=== PATIENT | male | born 1940 | race Caucasian/White ===

== ENCOUNTER 2018-09-27 11:44 | Inpatient (IN) | payer MEDICARE ==
[2018-09-27] MEDS ORDERED: IPRATROPIUM-ALBUTEROL 3 ML NEB INHALATION STA (12:08)
[2018-09-27 12:28] LABS: Anisocytosis Slight; Basophils % (A) 1 %; Eosinophils # (A) 0.1 k/uL (0-0.7); Eosinophils % (A) 3 %; HCT 48.3 % (39.0-53.0); HGB 15.4 gm/dL (13.0-17.5); Hypochromasia Slight; Lymphocytes # (A) 0.9 k/uL (1.0-4.8); Lymphocytes % (A) 18 %; MCH 33.3 pg (25.0-35.0); MCHC 31.9 g/dL (31.0-37.0); MCV 104.5 fL (80.0-100.0); Macrocytosis Moderate; Mean Platelet Volume 8.9; Monocytes # (A) 0.4 k/uL (0-1.0); Monocytes % (A) 7 %; Neutrophils # (A) 3.5 k/uL (1.3-7.7); Neutrophils % (A) 69 %; Platelet Count 112 k/uL (150-450); RBC 4.62 m/uL (4.30-5.90); WBC 5.1 k/uL (3.8-10.6)
--- NOTE | 2018-09-27 12:36 | ED ---
SOB HPI - General Chief Complaint: Shortness of Breath Stated Complaint: staci Time Seen by Provider: 09/27/18 11:57 Source: patient, family, RN notes reviewed, old records reviewed Mode of arrival: wheelchair Limitations: no limitations - History of Present Illness Initial Comments: This is a 70-year-old male who presents with complaints of shortness of breath and going on progressively over last he did recently drive from [place] to [place] he does say he's been having worsening shortness of breath some orthopnea and exertional dyspnea. No fevers chills nausea vomiting sweats no overt chest pain. He has a history of heart failure. He does have some peripheral edema which she states is not as bad as it has been in the past. He has a cough some clear phlegm and per his he's been less active for last week or 2 then usual. MD Complaint: shortness of breath - Related Data Home Medications Medication Instructions Recorded Confirmed Allopurinol [Zyloprim] 300 mg PO DAILY 09/27/18 09/27/18 Aspirin [[place] Aspirin EC] 81 mg PO DAILY 09/27/18 09/27/18 Atorvastatin [Lipitor] 40 mg PO DAILY 09/27/18 09/27/18 Bumetanide [BUMEX] 1 mg PO DAILY 09/27/18 09/27/18 Carvedilol [Coreg] 3.125 mg PO BID 09/27/18 09/27/18 Clopidogrel [Plavix] 75 mg PO DAILY 09/27/18 09/27/18 Lisinopril [Zestril] 10 mg PO DAILY 09/27/18 09/27/18 oxyCODONE HCL/ACETAMINOPHEN 1 tab PO Q4HR PRN 09/27/18 09/27/18 [Percocet 5-325 mg] Allergies Allergy/AdvReac Type Severity Reaction Status Date / Time No Known Allergies Allergy Verified 09/27/18 12:07 Review of Systems ROS Statement: Those systems with pertinent positive or pertinent negative responses have been documented in the HPI. ROS Other: All systems not noted in ROS Statement are negative. Past Medical History Past Medical History: Coronary Artery Disease (CAD), Cancer, Vascular Disorder Additional Past Medical History / Comment(s): bladder cancer, carotid stenosis History of Any Multi-Drug Resistant Organisms: None Reported Past Surgical History: Appendectomy, Back Surgery, Coronary Bypass/CABG, Heart Catheterization, Heart Catheterization With Stent, Pacemaker Past Psychological History: No Psychological Hx Reported Smoking Status: Former smoker Past Alcohol Use History: None Reported Past Drug Use History: None Reported General Exam - General Exam Comments Initial Comments: Is a well-developed well-nourished awake alert oriented 3 Limitations: no limitations General appearance: alert, in no apparent distress Head exam: Present: atraumatic, normocephalic, normal inspection Eye exam: Present: normal appearance, PERRL, EOMI. Absent: scleral icterus, conjunctival injection, periorbital swelling ENT exam: Present: normal exam, mucous membranes moist Neck exam: Present: normal inspection, full ROM, other (No stridor JVD or bruits). Absent: tenderness, meningismus, lymphadenopathy Respiratory exam: Present: normal lung sounds bilaterally. Absent: respiratory distress, wheezes, rales, rhonchi, stridor Cardiovascular Exam: Present: regular rate, normal rhythm, normal heart sounds. Absent: systolic murmur, diastolic murmur, rubs, gallop, clicks GI/Abdominal exam: Present: soft, normal bowel sounds. Absent: distended, tenderness, guarding, rebound, rigid Rectal exam: Present: deferred Extremities exam: Present: full ROM, normal capillary refill, pedal edema. Absent: tenderness, joint swelling, calf tenderness Back exam: Present: normal inspection Neurological exam: Present: alert, oriented X3, CN II-XII intact Psychiatric exam: Present: normal affect, normal mood Skin exam: Present: warm, dry, intact, normal color. Absent: rash Course Vital Signs 09/27/18 09/27/18 09/27/18 11:49 12:18 12:28 Temperature 97.7 F Pulse Rate 115 H 114 H 114 H Respiratory 24 Rate Blood Pressure 111/71 O2 Sat by Pulse 100 Oximetry 09/27/18 13:17 Temperature Pulse Rate 114 H Respiratory 18 Rate Blood Pressure 110/83 O2 Sat by Pulse 100 Oximetry - Reevaluation(s) Reevaluation #1: 09/27/18 13:47 Patient did get some relief and is breathing after the nebulizer treatment. Medical Decision Making - Medical Decision Making I did discuss findings with the patient and family member. Patient will be admitted he does demonstrate evidence of dehydration intravascularly though he does also have evidence of congestive heart failure with markedly elevated d- dimer elevated troponin and renal insufficiency and elevated creatinine. Patient will be admitted VQ scan will be ordered. - Lab Data Result diagrams: 09/27/18 12:18 09/27/18 12:18 Lab Results 09/27/18 09/27/18 09/27/18 Range/Units 12:18 12:18 12:18 WBC 5.1 (3.8-10.6) k/uL RBC 4.62 (4.30-5.90) m/uL Hgb 15.4 (13.0-17.5) gm/dL Hct 48.3 (39.0-53.0) % MCV 104.5 H (80.0-100.0) fL MCH 33.3 (25.0-35.0) pg MCHC 31.9 (31.0-37.0) g/dL RDW 18.0 H (11.5-15.5) % Plt Count 112 L (150-450) k/uL Neutrophils % 69 % Lymphocytes % 18 % Monocytes % 7 % Eosinophils % 3 % Basophils % 1 % Neutrophils # 3.5 (1.3-7.7) k/uL Lymphocytes # 0.9 L (1.0-4.8) k/uL Monocytes # 0.4 (0-1.0) k/uL Eosinophils # 0.1 (0-0.7) k/uL Basophils # 0.0 (0-0.2) k/uL Hypochromasia Slight Anisocytosis Slight Macrocytosis Moderate PT 16.6 H (9.0-12.0) sec INR 1.7 H (<1.2) APTT 25.7 (22.0-30.0) sec D-Dimer 4.84 H (<0.60) mg/L FEU Sodium 142 (137-145) mmol/L Potassium 4.0 (3.5-5.1) mmol/L Chloride 103 (98-107) mmol/L Carbon Dioxide 28 (22-30) mmol/L Anion Gap 11 mmol/L BUN 40 H (9-20) mg/dL Creatinine 1.63 H (0.66-1.25) mg/dL Est GFR (CKD-EPI)AfAm 46 (>60 ml/min/1.73 sqM) Est GFR (CKD-EPI)NonAf 40 (>60 ml/min/1.73 sqM) Glucose 96 (74-99) mg/dL Calcium 9.7 (8.4-10.2) mg/dL Magnesium 1.9 (1.6-2.3) mg/dL Total Bilirubin 3.8 H (0.2-1.3) mg/dL AST 60 H (17-59) U/L ALT 61 (21-72) U/L Alkaline Phosphatase 140 H (38-126) U/L Troponin I (0.000-0.034) ng/mL NT-Pro-B Natriuret Pep pg/mL Total Protein 7.2 (6.3-8.2) g/dL Albumin 4.0 (3.5-5.0) g/dL 09/27/18 09/27/18 Range/Units 12:18 12:18 WBC (3.8-10.6) k/uL RBC (4.30-5.90) m/uL Hgb (13.0-17.5) gm/dL Hct (39.0-53.0) % MCV (80.0-100.0) fL MCH (25.0-35.0) pg MCHC (31.0-37.0) g/dL RDW (11.5-15.5) % Plt Count (150-450) k/uL Neutrophils % % Lymphocytes % % Monocytes % % Eosinophils % % Basophils % % Neutrophils # (1.3-7.7) k/uL Lymphocytes # (1.0-4.8) k/uL Monocytes # (0-1.0) k/uL Eosinophils # (0-0.7) k/uL Basophils # (0-0.2) k/uL Hypochromasia Anisocytosis Macrocytosis PT (9.0-12.0) sec INR (<1.2) APTT (22.0-30.0) sec D-Dimer (<0.60) mg/L FEU Sodium (137-145) mmol/L Potassium (3.5-5.1) mmol/L Chloride (98-107) mmol/L Carbon Dioxide (22-30) mmol/L Anion Gap mmol/L BUN (9-20) mg/dL Creatinine (0.66-1.25) mg/dL Est GFR (CKD-EPI)AfAm (>60 ml/min/1.73 sqM) Est GFR (CKD-EPI)NonAf (>60 ml/min/1.73 sqM) Glucose (74-99) mg/dL Calcium (8.4-10.2) mg/dL Magnesium (1.6-2.3) mg/dL Total Bilirubin (0.2-1.3) mg/dL AST (17-59) U/L ALT (21-72) U/L Alkaline Phosphatase (38-126) U/L Troponin I 0.163 H* (0.000-0.034) ng/mL NT-Pro-B Natriuret Pep 3410 pg/mL Total Protein (6.3-8.2) g/dL Albumin (3.5-5.0) g/dL - EKG Data -: EKG Interpreted by Me (Atrial sensed ventricular paced rhythm with PVC rate was 1:151:30 QRS d) - Radiology Data Radiology results: report reviewed (I did review the imaging and report or is some evidence of increased pulmonary markings basically report), image reviewed Critical Care Time Critical Care Time: Yes Critical Care Time: 31 minutes of critical care time which includes initial presentation with history physical labs x-rays multiple reevaluation the patient discussed with patient family regarding findings discussed with Dr. albright regarding the findings admission orders and documentation of the above Disposition Clinical Impression: Systolic congestive heart failure, Acute kidney injury, Elevated d-dimer, Elevated troponin, Acute bronchospasm Disposition: ADMITTED IP TO THIS [facility] Condition: Fair Referrals: Nonstaff,Physician [Primary Care Provider] - 1-2 days
[2018-09-27 12:37] LABS: Calcium 9.7 mg/dL (8.4-10.2); Magnesium 1.9 mg/dL (1.6-2.3); Total Bilirubin 3.8 mg/dL (0.2-1.3); Total Protein 7.2 g/dL (6.3-8.2)
--- NOTE | 2018-09-27 12:43 | XR ---
EXAMINATION TYPE: XR chest 2V DATE OF EXAM: 09/27/2018 COMPARISON: NONE HISTORY: Shortness of breath for 3 weeks TECHNIQUE: Frontal and lateral views of the chest are obtained. FINDINGS: There is a multilead left-sided cardiac device and enlarged cardiac mediastinal silhouette . Post CABG changes are also noted. There is haziness surrounding the right heart border. No signific ant pulmonary vascular congestion. No sizable pleural effusion or pneumothorax. Postsurgical change o f the thoracolumbar spine is seen with mild compression deformity at the level above the postsurgical change and diffuse osseous demineralization as well as moderate degenerative changes of the spine. IMPRESSION: 1. Hazy right middle lobe opacity overlying the right cardiac border could relate to atelectasis or p neumonia in the proper clinical setting. 2. Enlarged cardiomediastinal silhouette is seen with postoperative change. 3. Age indeterminant compression deformity of the thoracic spine a level above the surgical site. Cor relate for point tenderness. No priors for comparison.
[2018-09-27 12:46] LABS: INR 1.7 (<1.2); Partial Thromboplastin Time 25.7 sec (22.0-30.0); Prothrombin Time 16.6 sec (9.0-12.0)
[2018-09-27 13:06] LABS: D-Dimer 4.84 mg/L FEU (<0.60)
[2018-09-27] MEDS ORDERED: HEPARIN SODIUM,PORCINE 10,000 UNIT/ML 1 ML VIAL IV ONE (13:56)
[2018-09-27] MEDS ORDERED: HEPARIN SODIUM,PORCINE 5,000 UNIT/ML 1 ML VIAL IV PRN (13:56)
[2018-09-27] MEDS: SODIUM CHLORIDE 0.9% 1,000 ML IV SCH (14:22)
[2018-09-27] MEDS: HEPARIN SOD,PORK IN 0.45% NACL 25,000 UNIT in 0.45% NACL 1 250ML.BAG IV SCH (14:33)
[2018-09-27] MEDS: FUROSEMIDE 10 MG/ML 4 ML VIAL IV SCH (15:54)
--- NOTE | 2018-09-27 16:09 | NM ---
EXAMINATION TYPE: NM pul vent and perfuse DATE OF EXAM: 09/27/2018 COMPARISON: Chest x-ray same date HISTORY: Shortness of breath, elevated d-dimer TECHNIQUE: Utilizing inhalation of 65.7 mCi Tc 99m DTPA aerosol and intravenous injection of 5.12 mC i of Tc 99m MAA, ventilation and perfusion images are acquired post injection in multiple projections . FINDINGS: There is no evidence of mismatched defects. Central clumping of the radiopharmaceutical o n ventilation imaging compatible with underlying COPD. Overall uptake is better on perfusion imaging than on ventilation imaging. IMPRESSION: Low probability for pulmonary embolism.
[2018-09-27] MEDS: oxyCODONE-APAP 5-325MG 1 EACH TAB PO PRN (18:08)
[2018-09-27] MEDS: ATORVASTATIN 40 MG TAB PO SCH (18:08)
[2018-09-27] MEDS: CARVEDILOL 3.125 MG TAB PO SCH (18:08)
[2018-09-28] MEDS: FUROSEMIDE 10 MG/ML 4 ML VIAL IV SCH (02:17)
[2018-09-28] MEDS: HEPARIN SOD,PORK IN 0.45% NACL 25,000 UNIT in 0.45% NACL 1 250ML.BAG IV SCH (03:27)
[2018-09-28] MEDS: CARVEDILOL 3.125 MG TAB PO SCH ×2 (06:49→17:21)
[2018-09-28 06:59] LABS: Anisocytosis Slight; Basophils # (A) 0.1 k/uL (0-0.2); Basophils % (A) 1 %; Eosinophils # (A) 0.2 k/uL (0-0.7); Eosinophils % (A) 4 %; HCT 44.7 % (39.0-53.0); HGB 14.1 gm/dL (13.0-17.5); Hypochromasia Slight; Lymphocytes % (A) 18 %; MCHC 31.6 g/dL (31.0-37.0); MCV 104.4 fL (80.0-100.0); Macrocytosis Moderate; Mean Platelet Volume 9.1; Monocytes # (A) 0.4 k/uL (0-1.0); Monocytes % (A) 6 %; Neutrophils # (A) 3.9 k/uL (1.3-7.7); Neutrophils % (A) 68 %; Platelet Count 122 k/uL (150-450); RBC 4.28 m/uL (4.30-5.90); RDW 17.8 % (11.5-15.5); WBC 5.7 k/uL (3.8-10.6)
[2018-09-28] MEDS ORDERED: BUMETANIDE 1 MG TAB PO SCH (09:00)
[2018-09-28] MEDS: ALLOPURINOL 300 MG TAB PO SCH (09:08)
[2018-09-28] MEDS: CLOPIDOGREL 75 MG TAB PO SCH (09:08)
[2018-09-28] MEDS: ASPIRIN 81 MG PO SCH (09:08)
[2018-09-28] MEDS: ATORVASTATIN 40 MG TAB PO SCH ×2 (09:08→21:24)
--- NOTE | 2018-09-28 11:17 | P.HPIM ---
History of Present Illness H&P Date: 09/27/18 70-year-old male who presents with complaints of shortness of breath and going on progressively over last he did recently drive from [place] to [place] he does say he's been having worsening shortness of breath some orthopnea and exertional dyspnea. No fevers chills nausea vomiting sweats no overt chest pain. He has a history of heart failure. He does have some peripheral edema which she states is not as bad as it has been in the past. He has a cough some clear phlegm and per his he's been less active for last week or 2 then usual. Workup in ED was significant for mildly elevated troponin and elevated d-dimer; CT chest could not be done because of elevated creatinine; patient underwent VQ scanning which was low probability for PE; patient was started on IV heparin for elevated troponin along with aspirin and beta blockers; cardiology is consulted Review of Systems Constitutional: Denies chills, Denies fever Eyes: denies blurred vision Ears, nose, mouth and throat: Denies epistaxis, Denies hoarseness Cardiovascular: Reports dyspnea on exertion, Reports edema Respiratory: Reports cough with sputum Gastrointestinal: Denies abdominal pain, Denies nausea, Denies vomiting Genitourinary: Denies dysuria, Denies hematuria Integumentary: Denies color changes, Denies rash Neurological: Denies confusion, Denies double vision, Denies gait dysfunction Psychiatric: Denies anxiety, Denies confusion Endocrine: Denies cold intolerance, Denies heat intolerance Hematologic/Lymphatic: Denies easy bruising, Denies lymphadenopathy Allergic/Immunologic: Denies anaphylaxis, Denies seasonal allergies Past Medical History Past Medical History: Coronary Artery Disease (CAD), Cancer, Vascular Disorder Additional Past Medical History / Comment(s): bladder cancer, carotid stenosis History of Any Multi-Drug Resistant Organisms: None Reported Past Surgical History: Appendectomy, Back Surgery, Coronary Bypass/CABG, Heart Catheterization, Heart Catheterization With Stent, Pacemaker Past Psychological History: No Psychological Hx Reported Smoking Status: Former smoker Past Alcohol Use History: None Reported Past Drug Use History: None Reported - Past Family History Father Family Medical History: CVA/TIA Mother Family Medical History: Myocardial Infarction ([place]) Medications and Allergies Home Medications Medication Instructions Recorded Confirmed Type Allopurinol [Zyloprim] 300 mg PO DAILY 09/27/18 09/27/18 History Aspirin [[place] Aspirin EC] 81 mg PO DAILY 09/27/18 09/27/18 History Atorvastatin [Lipitor] 40 mg PO DAILY 09/27/18 09/27/18 History Bumetanide [BUMEX] 1 mg PO DAILY 09/27/18 09/27/18 History Carvedilol [Coreg] 3.125 mg PO BID 09/27/18 09/27/18 History Clopidogrel [Plavix] 75 mg PO DAILY 09/27/18 09/27/18 History Lisinopril [Zestril] 10 mg PO DAILY 09/27/18 09/27/18 History oxyCODONE HCL/ACETAMINOPHEN 1 tab PO Q4HR PRN 09/27/18 09/27/18 History [Percocet 5-325 mg] Allergies Allergy/AdvReac Type Severity Reaction Status Date / Time No Known Allergies Allergy Verified 09/27/18 12:07 Physical Exam Vitals: Vital Signs Temp Pulse Resp BP Pulse Ox 09/27/18 16:57 90/67 09/27/18 16:33 112 H 20 90/66 98 09/27/18 15:43 111 H 20 90/55 92 L 09/27/18 15:32 99 20 103/64 95 09/27/18 14:40 112 H 18 101/68 99 09/27/18 14:14 112 H 18 96/69 100 09/27/18 13:17 114 H 18 110/83 100 09/27/18 12:28 114 H 09/27/18 12:18 114 H 09/27/18 11:49 97.7 F 115 H 24 111/71 100 Intake and Output 09/27/18 09/27/18 09/27/18 06:59 14:59 22:59 Other: Weight 104.326 kg Limitations: no limitations General appearance: alert, in no apparent distress Head exam: Present: atraumatic, normocephalic, normal inspection Eye exam: Present: normal appearance, PERRL, EOMI. Absent: scleral icterus, conjunctival injection, periorbital swelling ENT exam: Present: normal exam, mucous membranes moist Neck exam: Present: normal inspection, full ROM, other (No stridor JVD or bruits). Absent: tenderness, meningismus, lymphadenopathy Respiratory exam: Present: normal lung sounds bilaterally. Absent: respiratory distress, wheezes, rales, rhonchi, stridor Cardiovascular Exam: Present: regular rate, normal rhythm, normal heart sounds. Absent: systolic murmur, diastolic murmur, rubs, gallop, clicks GI/Abdominal exam: Present: soft, normal bowel sounds. Absent: distended, tenderness, guarding, rebound, rigid Rectal exam: Present: deferred Extremities exam: Present: full ROM, normal capillary refill, pedal edema. Absent: tenderness, joint swelling, calf tenderness Back exam: Present: normal inspection Neurological exam: Present: alert, oriented X3, CN II-XII intact Psychiatric exam: Present: normal affect, normal mood Skin exam: Present: warm, dry, intact, normal color. Absent: rash Results CBC & Chem 7: 09/28/18 06:21 09/27/18 12:18 Labs: Abnormal Lab Results - Last 24 Hours (Table) 09/27/18 09/27/18 09/27/18 Range/Units 12:18 12:18 12:18 MCV 104.5 H (80.0-100.0) fL RDW 18.0 H (11.5-15.5) % Plt Count 112 L (150-450) k/uL Lymphocytes # 0.9 L (1.0-4.8) k/uL PT 16.6 H (9.0-12.0) sec INR 1.7 H (<1.2) D-Dimer 4.84 H (<0.60) mg/L FEU BUN 40 H (9-20) mg/dL Creatinine 1.63 H (0.66-1.25) mg/dL Total Bilirubin 3.8 H (0.2-1.3) mg/dL AST 60 H (17-59) U/L Alkaline Phosphatase 140 H (38-126) U/L Troponin I (0.000-0.034) ng/mL 09/27/18 Range/Units 12:18 MCV (80.0-100.0) fL RDW (11.5-15.5) % Plt Count (150-450) k/uL Lymphocytes # (1.0-4.8) k/uL PT (9.0-12.0) sec INR (<1.2) D-Dimer (<0.60) mg/L FEU BUN (9-20) mg/dL Creatinine (0.66-1.25) mg/dL Total Bilirubin (0.2-1.3) mg/dL AST (17-59) U/L Alkaline Phosphatase (38-126) U/L Troponin I 0.163 H* (0.000-0.034) ng/mL Assessment and Plan Assessment: 1. Acute onset dyspnea; right middle lobe pneumonia - We will start patient on IV ceftriaxone along with oral azithromycin - Bronchodilator nebulizer treatments with Proventil/Atrovent - Sputum and blood cultures - Consult pulmonary for further recommendations 2. Elevated d-dimer; rule out PE - CT chest PE protocol could not be done due to elevated creatinine; patient had VQ scan done which was low probability for PE - Pulmonary service consulted for further recommendations 3. Non-ST elevation [place] - Patient started on aspirin, beta blockers and IV heparin per protocol - Consult cardiology for further recommendations; 2-D echo 4. Acute exacerbation CHF - Patient takes Bumex 1 mg by mouth daily at home; we will hold latent start patient on IV Lasix 40 mg every 12 hours - We will monitor strict FRANK's, daily weights, renal function and electrolytes; restricted fluid and sodium diet - Echocardiogram ordered; cardiology is to see for further recommendations 5. Hypertension; patient takes Coreg and lisinopril at home; we will hold off on lisinopril secondary to acute renal injury 6. Hyperlipidemia; atorvastatin 40 mg by mouth daily at bedtime 7. Coronary artery disease/CHF; continue with aspirin, Coreg and Plavix; we'll hold off on Bumex while patient on IV Lasix 8. Acute renal injury; we will hold off on lisinopril; avoid hypotension and nephrotoxins - Monitor strict FRANK's and daily weights along with renal function and electrolyte monitoring - No IV fluids secondary to exacerbation of CHF - We will consult nephrology if renal function continues to deteriorate 9. DVT prophylaxis; systemic anticoagulation with heparin CODE STATUS; DO NOT RESUSCITATE Time with Patient: Greater than 30
--- NOTE | 2018-09-28 12:20 | P.CRDCN ---
History of Present Illness Consult date: 09/28/18 History of present illness: This is a 70-year-old gentleman with history of coronary artery disease with previous bypass surgery, possible cardiomyopathy and congestive heart failure, status post ICD placement with biventricular pacemaker. Apparently the pacemaker was upgraded to by IV. In March 2018. Patient usually comes to [place] on in summer months and spends several weeks. He has been in [place] area for about 5 weeks. Was last 5 weeks. Patient has been coughing and bringing up clear phlegm and has been having shortness of breath. Denied any c hest pain. Doesn't appear patient has any proximal nocturnal dyspnea. Denies any pedal swelling. On admission his d-dimer was elevated and patient had a VQ scan which was low probability for pulmonary emboli. She is being treated with IV Lasix. A chest x-ray shows cardiomegaly but no overt congestive heart failure, but there is suspicion for possible pneumonia in the right middle lobe. Patient is seen by customer experience associate and is planning to continue treated with antibiotics. His creatinine is up to 1.6. His troponins are elevated but the pattern is not consistent with acute myocardial infarction. I'm going to discontinue IV Lasix and start him on by mouth Bumex. I'm going to get an ech ocardiogram done. Further recommendation depending upon the clinical course Review of Systems As per the chart Past Medical History Past Medical History: Coronary Artery Disease (CAD), Cancer, Vascular Disorder Additional Past Medical History / Comment(s): bladder cancer, carotid stenosis History of Any Multi-Drug Resistant Organisms: None Reported Past Surgical History: Appendectomy, Back Surgery, Coronary Bypass/CABG, Heart Catheterization, Heart Catheterization With Stent, Pacemaker Past Anesthesia/Blood Transfusion Reactions: No Reported Reaction Date of Last Stent Placement:: 2015 Type of Cardiac Device: AICD Device Placement Date:: 2015 Past Psychological History: No Psychological Hx Reported Smoking Status: Former smoker Past Alcohol Use History: None Reported Past Drug Use History: None Reported - Past Family History Father Family Medical History: CVA/TIA Mother Family Medical History: Myocardial Infarction ([place]) Medications and Allergies Home Medications Medication Instructions Recorded Confirmed Type Allopurinol [Zyloprim] 300 mg PO DAILY 09/27/18 09/27/18 History Aspirin [[place] Aspirin EC] 81 mg PO DAILY 09/27/18 09/27/18 History Atorvastatin [Lipitor] 40 mg PO DAILY 09/27/18 09/27/18 History Bumetanide [BUMEX] 1 mg PO DAILY 09/27/18 09/27/18 History Carvedilol [Coreg] 3.125 mg PO BID 09/27/18 09/27/18 History Clopidogrel [Plavix] 75 mg PO DAILY 09/27/18 09/27/18 History Lisinopril [Zestril] 10 mg PO DAILY 09/27/18 09/27/18 History oxyCODONE HCL/ACETAMINOPHEN 1 tab PO Q4HR PRN 09/27/18 09/27/18 History [Percocet 5-325 mg] Allergies Allergy/AdvReac Type Severity Reaction Status Date / Time No Known Allergies Allergy Verified 09/27/18 12:07 Physical Exam Vitals: Vital Signs Temp Pulse Pulse Resp BP BP BP 09/28/18 11:34 97.5 F L 109 H 20 09/28/18 10:34 111 H 107/62 09/28/18 08:00 97.3 F L 110 H 16 09/28/18 04:00 97.3 F L 110 H 18 86/62 09/28/18 00:00 97.4 F L 110 H 18 91/56 09/27/18 20:00 97.6 F 112 H 16 89/62 09/27/18 17:26 97.5 F L 78 22 101/71 09/27/18 16:57 90/67 09/27/18 16:33 112 H 20 90/66 09/27/18 15:43 111 H 20 90/55 09/27/18 15:32 99 20 103/64 09/27/18 14:40 112 H 18 101/68 09/27/18 14:14 112 H 18 96/69 09/27/18 13:17 114 H 18 110/83 09/27/18 12:28 114 H 09/27/18 12:18 114 H BP Pulse Ox 09/28/18 11:34 82/58 94 L 09/28/18 10:34 09/28/18 08:00 82/58 94 L 09/28/18 04:00 94 L 09/28/18 00:00 95 09/27/18 20:00 94 L 09/27/18 17:26 09/27/18 16:57 09/27/18 16:33 98 09/27/18 15:43 92 L 09/27/18 15:32 95 09/27/18 14:40 99 09/27/18 14:14 100 09/27/18 13:17 100 09/27/18 12:28 09/27/18 12:18 Intake and Output 09/27/18 09/28/18 09/28/18 22:59 06:59 14:59 Intake Total 246.445 0 420 Output Total 150 125 Balance 96.445 -125 420 Intake: Intake, IV Titration 126.445 0 Amount Heparin Sod,Pork in 0.45% 126.445 0 NaCl 25,000 unit In 0.45 % NaCl 1 250ml.bag @ 18 UNITS/KG/HR 18.779 mls/hr IV .[id number] [facility] Rx#: [id number] Oral 120 420 Output: Urine 150 125 Other: Voiding Method Urinal Urinal Urinal # Voids 1 # Bowel Movements 1 Weight 109.9 kg 109 kg GENERAL EXAM: Patient is alert and oriented and doesn't appear to be in any acute distress, seemed to chronically ill HEENT: Normocephalic. Normal reaction of pupils, equal size, normal range of extraocular motion. No erythema or exudates in the throat. NECK: No masses, no nuchal rigidity. CHEST: No chest wall deformity. LUNGS: Equal air entry with no crackles or wheeze. HEART: S1 and S2 normal with no audible mumurs or gallops. Regular rhythm, femorals equal on both sides.. ABDOMEN: No hepatosplenomegaly, normal bowel sounds, no guarding or rigidity. SKIN: No rashes CENTRAL NERVOUS SYSTEM: No focal deficits. EXTREMITIES: No cyanosis, clubbing or edema. Results 09/28/18 06:21 09/27/18 12:18 Cardiac Enzymes 09/27/18 09/27/18 09/27/18 Range/Units 12:18 12:18 19:52 AST 60 H (17-59) U/L Troponin I 0.163 H* 0.136 H* (0.000-0.034) ng/mL 09/28/18 Range/Units 02:24 AST (17-59) U/L Troponin I 0.136 H* (0.000-0.034) ng/mL Coagulation 09/27/18 09/27/18 09/27/18 Range/Units 12:18 19:52 22:13 PT 16.6 H (9.0-12.0) sec APTT 25.7 >200.0 H* >200.0 H* (22.0-30.0) sec 09/28/18 09/28/18 Range/Units 02:24 06:21 PT (9.0-12.0) sec APTT 57.3 H 67.5 H (22.0-30.0) sec CBC 09/27/18 09/28/18 Range/Units 12:18 06:21 WBC 5.1 5.7 (3.8-10.6) k/uL RBC 4.62 4.28 L (4.30-5.90) m/uL Hgb 15.4 14.1 (13.0-17.5) gm/dL Hct 48.3 44.7 (39.0-53.0) % Plt Count 112 L 122 L (150-450) k/uL Comprehensive Metabolic Panel 09/27/18 Range/Units 12:18 Sodium 142 (137-145) mmol/L Potassium 4.0 (3.5-5.1) mmol/L Chloride 103 (98-107) mmol/L Carbon Dioxide 28 (22-30) mmol/L BUN 40 H (9-20) mg/dL Creatinine 1.63 H (0.66-1.25) mg/dL Glucose 96 (74-99) mg/dL Calcium 9.7 (8.4-10.2) mg/dL AST 60 H (17-59) U/L ALT 61 (21-72) U/L Alkaline Phosphatase 140 H (38-126) U/L Total Protein 7.2 (6.3-8.2) g/dL Albumin 4.0 (3.5-5.0) g/dL Current Medications Generic Name Dose Route Start Last Admin Trade Name Freq PRN Reason Stop Dose Admin Allopurinol 300 mg 09/28/18 09:00 09/28/18 09:08 Zyloprim PO 300 mg DAILY FELIPE Administration Aspirin 81 mg 09/28/18 09:00 09/28/18 09:08 Aspirin PO 81 mg DAILY FELIPE Administration Atorvastatin Calcium 40 mg 09/28/18 21:00 Lipitor PO HS FELIPE Azithromycin 250 mg 09/28/18 11:15 Zithromax PO DAILY FELIPE Bumetanide 1 mg 09/28/18 16:00 Bumex PO BID@0900,1600 FELIPE Carvedilol 3.125 mg 09/27/18 17:30 09/28/18 06:49 Coreg PO 3.125 mg BID-W/MEALS FELIPE Administration Clopidogrel Bisulfate 75 mg 09/28/18 09:00 09/28/18 09:08 Plavix PO 75 mg DAILY FELIPE Administration Sodium Chloride 1,000 mls @ 20 mls/hr 09/27/18 14:00 09/27/18 14:22 Saline 0.9% IV 20 mls/hr .Q24H FELIPE Administration Ceftriaxone Sodium 1 gm/ 50 mls @ 100 mls/hr 09/28/18 12:00 Sodium Chloride IVPB Q24H FELIPE Oxycodone/Acetaminophen 1 each 09/27/18 13:57 09/27/18 18:08 Percocet 5-325 PO 1 each Q4HR PRN Administration Pain Intake and Output 09/27/18 09/28/18 09/28/18 22:59 06:59 14:59 Intake Total 246.445 0 420 Output Total 150 125 Balance 96.445 -125 420 Intake: Intake, IV Titration 126.445 0 Amount Heparin Sod,Pork in 0.45% 126.445 0 NaCl 25,000 unit In 0.45 % NaCl 1 250ml.bag @ 18 UNITS/KG/HR 18.779 mls/hr IV .[id number] [facility] Rx#: [id number] Oral 120 420 Output: Urine 150 125 Other: Voiding Method Urinal Urinal Urinal # Voids 1 # Bowel Movements 1 Weight 109.9 kg 109 kg 09/28/18 06:21 09/27/18 12:18 EKG Interpretations (text) Showed atrial sensed and ventricular paced rhythm. Occasional APCs Assessment and Plan (1) Chronic systolic heart failure Current Visit: Yes Status: Acute Code(s): I50.22 - CHRONIC SYSTOLIC (CONGESTIVE) HEART FAILURE SNOMED Code(s): 013488329 (2) Elevated troponin Current Visit: Yes Status: Acute Code(s): R74.8 - ABNORMAL LEVELS OF OTHER SERUM ENZYMES SNOMED Code(s): 967373580 (3) Pneumonia Current Visit: Yes Status: Acute Code(s): J18.9 - PNEUMONIA, UNSPECIFIED ORGANISM SNOMED Code(s): 242407636 (4) History of coronary artery bypass graft Current Visit: Yes Status: Acute Code(s): Z95.1 - PRESENCE OF AORTOCORONARY BYPASS GRAFT SNOMED Code(s): 688301391 (5) Ischemic cardiomyopathy Current Visit: Yes Status: Acute Code(s): I25.5 - ISCHEMIC CARDIOMYOPATHY SNOMED Code(s): 236187672 (6) Cardiac defibrillator in place Current Visit: Yes Status: Acute Code(s): Z95.810 - PRESENCE OF AUTOMATIC (IMPLANTABLE) CARDIAC DEFIBRILLATOR SNOMED Code(s): 249073122 Plan: We will continue current management with antibiotics. I will discontinue IV Lasix as this doesn't seem to be significant fluid overload. We'll follow his renal functions. We'll repeat the echocardiogram. We'll follow the recommendation customer experience associate. Further recommendations depend upon the clinical course.
--- NOTE | 2018-09-28 13:41 | P.CNPUL ---
History of Present Illness Consult date: 09/28/18 Reason for consult: dyspnea History of present illness: 70-year-old male patient with known history of coronary artery disease, previous bypass surgery, possible cardiomyopathy as the patient has a AICD with biventricular pacer and all of this work has been done in [place]. The patient also has history of bladder cancer receiving intravesicular chemotherapy locally. No history of any chronic lung disease or disorder. The patient arrived to [place] approximately 5 weeks ago. This is his summer vacation. During the study was having increased cough and congestion and some increased shortness of breath. The patient came into the hospital. He was found to be in acute kidney injury with a creatinine of 1.6. His troponins were minimally elevated and there was evidence of troponin leak consistent with an acute non- STEMI. The patient is a chest x-ray that showed some limited right middle lobe pulmonary infiltrates. The pulmonary consultation was requested. The patient is also is being seen by cardiology. He is on room air for now. No nausea. No vomiting. No aspiration. He does not utilize any form of oxygen or pulmonary medication on outpatient basis. Baseline creatinine is not known. Otherwise no other records available. He is known to have peripheral vascular disease with previous intervention to his lower extremities. He is also has undergone coronary stenting and previous bypass surgery. Review of Systems Constitutional: Denies chills, Denies fever Eyes: denies blurred vision Ears, nose, mouth and throat: Denies epistaxis, Denies hoarseness Cardiovascular: Reports dyspnea on exertion, Reports edema Respiratory: Reports cough with sputum Gastrointestinal: Denies abdominal pain, Denies nausea, Denies vomiting Genitourinary: Denies dysuria, Denies hematuria Integumentary: Denies color changes, Denies rash Neurological: Denies confusion, Denies double vision, Denies gait dysfunction Psychiatric: Denies anxiety, Denies confusion Endocrine: Denies cold intolerance, Denies heat intolerance Hematologic/Lymphatic: Denies easy bruising, Denies lymphadenopathy Allergic/Immunologic: Denies anaphylaxis, Denies seasonal allergies Past Medical History Past Medical History: Coronary Artery Disease (CAD), Cancer, Vascular Disorder Additional Past Medical History / Comment(s): bladder cancer treated with intravesicular chemotherapy, peripheral vascular disease, carotid artery stenosis, coronary artery disease with previous bypass surgery, hyperuricemia, hyperlipidemia, previous history of acid the/ventricular pacer insertion, suspected cardiomyopathy. History of Any Multi-Drug Resistant Organisms: None Reported Past Surgical History: Appendectomy, Back Surgery, Coronary Bypass/CABG, Heart Catheterization, Heart Catheterization With Stent, Pacemaker Past Anesthesia/Blood Transfusion Reactions: No Reported Reaction Date of Last Stent Placement:: 2015 Type of Cardiac Device: AICD Device Placement Date:: 2015 Past Psychological History: No Psychological Hx Reported Smoking Status: Former smoker Past Alcohol Use History: None Reported Past Drug Use History: None Reported - Past Family History Father Family Medical History: CVA/TIA Mother Family Medical History: Myocardial Infarction ([place]) Medications and Allergies Home Medications Medication Instructions Recorded Confirmed Type Allopurinol [Zyloprim] 300 mg PO DAILY 09/27/18 09/27/18 History Aspirin [[place] Aspirin EC] 81 mg PO DAILY 09/27/18 09/27/18 History Atorvastatin [Lipitor] 40 mg PO DAILY 09/27/18 09/27/18 History Bumetanide [BUMEX] 1 mg PO DAILY 09/27/18 09/27/18 History Carvedilol [Coreg] 3.125 mg PO BID 09/27/18 09/27/18 History Clopidogrel [Plavix] 75 mg PO DAILY 09/27/18 09/27/18 History Lisinopril [Zestril] 10 mg PO DAILY 09/27/18 09/27/18 History oxyCODONE HCL/ACETAMINOPHEN 1 tab PO Q4HR PRN 09/27/18 09/27/18 History [Percocet 5-325 mg] Allergies Allergy/AdvReac Type Severity Reaction Status Date / Time No Known Allergies Allergy Verified 09/27/18 12:07 Physical Exam Vitals: Vital Signs Temp Pulse Pulse Resp BP BP BP 09/28/18 11:34 97.5 F L 109 H 20 09/28/18 10:34 111 H 107/62 09/28/18 08:00 97.3 F L 110 H 16 09/28/18 04:00 97.3 F L 110 H 18 86/62 09/28/18 00:00 97.4 F L 110 H 18 91/56 09/27/18 20:00 97.6 F 112 H 16 89/62 09/27/18 17:26 97.5 F L 78 22 101/71 09/27/18 16:57 90/67 09/27/18 16:33 112 H 20 90/66 09/27/18 15:43 111 H 20 90/55 09/27/18 15:32 99 20 103/64 09/27/18 14:40 112 H 18 101/68 09/27/18 14:14 112 H 18 96/69 BP Pulse Ox 09/28/18 11:34 82/58 94 L 09/28/18 10:34 09/28/18 08:00 82/58 94 L 09/28/18 04:00 94 L 09/28/18 00:00 95 09/27/18 20:00 94 L 09/27/18 17:26 09/27/18 16:57 09/27/18 16:33 98 09/27/18 15:43 92 L 09/27/18 15:32 95 09/27/18 14:40 99 09/27/18 14:14 100 Intake and Output 09/27/18 09/28/18 09/28/18 22:59 06:59 14:59 Intake Total 246.445 0 420 Output Total 150 125 Balance 96.445 -125 420 Intake: Intake, IV Titration 126.445 0 Amount Heparin Sod,Pork in 0.45% 126.445 0 NaCl 25,000 unit In 0.45 % NaCl 1 250ml.bag @ 18 UNITS/KG/HR 18.779 mls/hr IV .[id number] [facility] Rx#: [id number] Oral 120 420 Output: Urine 150 125 Other: Voiding Method Urinal Urinal Urinal # Voids 1 # Bowel Movements 1 Weight 109.9 kg 109 kg Results Gen. appearance, comfortable likely distress Head exam was generally normal. There was no scleral icterus or corneal arcus. Mucous membranes were moist. Neck was supple and without jugular venous distension, thyromegaly, or carotid bruits. Carotids were easily palpable bilaterally. There was no adenopathy. Lungs sounds are clear diminished in lung bases otherwise there is no crackles or rhonchi or wheezes. Cardiac exam revealed the PMI to be normally situated and sized. The rhythm was regular and no extrasystoles were noted during several minutes of auscultation. The first and second heart sounds were normal and physiologic splitting of the s econd heart sound was noted. There were no murmurs, rubs, clicks, or gallops. The patient is a pacemaker pocket in the left anterior chest area in addition to sternotomy scar which is dry clean and intact. Abdominal exam revealed normal bowel sounds. The abdomen was soft, non-tender, and without masses, organomegaly, or appreciable enlargement of the abdominal aorta. Examination of the extremities revealed easily palpable yet diminished radial, femoral and pedal pulses. There was no cyanosis, clubbing or edema. Examination of the skin revealed no evidence of significant rashes, suspicious appearing nevi or other concerning lesions. - Laboratory Findings CBC and BMP: 09/28/18 06:21 09/27/18 12:18 PT/INR, D-dimer PT 16.6 sec (9.0-12.0) H 09/27/18 12:18 INR 1.7 (<1.2) H 09/27/18 12:18 D-Dimer 4.84 mg/L FEU (<0.60) H 09/27/18 12:18 Abnormal lab findings: Abnormal Labs 09/27/18 09/27/18 09/27/18 12:18 12:18 12:18 RBC MCV 104.5 H RDW 18.0 H Plt Count 112 L Lymphocytes # 0.9 L PT 16.6 H INR 1.7 H APTT D-Dimer 4.84 H BUN 40 H Creatinine 1.63 H Total Bilirubin 3.8 H AST 60 H Alkaline Phosphatase 140 H Troponin I 09/27/18 09/27/18 09/27/18 12:18 19:52 19:52 RBC MCV RDW Plt Count Lymphocytes # PT INR APTT >200.0 H* D-Dimer BUN Creatinine Total Bilirubin AST Alkaline Phosphatase Troponin I 0.163 H* 0.136 H* 09/27/18 09/28/18 09/28/18 22:13 02:24 02:24 RBC MCV RDW Plt Count Lymphocytes # PT INR APTT >200.0 H* 57.3 H D-Dimer BUN Creatinine Total Bilirubin AST Alkaline Phosphatase Troponin I 0.136 H* 09/28/18 09/28/18 06:21 06:21 RBC 4.28 L MCV 104.4 H RDW 17.8 H Plt Count 122 L Lymphocytes # PT INR APTT 67.5 H D-Dimer BUN Creatinine Total Bilirubin AST Alkaline Phosphatase Troponin I Assessment and Plan Plan: 1 shortness of breath, subacute, suspecting a right middle lobe pneumonia 2 coronary artery disease with a previous coronary artery bypass surgery. Suspect a possible STEMI as the patient had elevation in troponins 3 CHF, suspected 4 kidney injury, likely acute 5 elevated d-dimer with a low probability VQ scan, unlikely to be related to pulmonary embolism 6 hypertension 7 hyperlipidemia 8 peripheral vascular disease 9 history of AICD/pacer insertion Plan Agree on Rocephin and Zithromax. Monitor pulmonary status. The patient is currently on room air oxygen. No signs of any respiratory distress. Monitor renal function. Echocardiogram. We'll follow.
[2018-09-28] MEDS: AZITHROMYCIN 250 MG TAB PO SCH (13:58)
[2018-09-28] MEDS: SODIUM CHLORIDE 0.9% 1,000 ML IV SCH (13:58)
[2018-09-28 14:51] VITALS: BMI 34.4
--- NOTE | 2018-09-28 16:45 | P.PN ---
Subjective Progress Note Date: 09/28/18 Principal diagnosis: right middle lobe pneumonia Non-ST elevation AL Acute exacerbation CHF 70-year-old male patient with known history of coronary artery disease, previous bypass surgery, possible cardiomyopathy as the patient has a AICD with biventricular pacer and all of this work has been done in [place]. The patient also has history of bladder cancer receiving intravesicular chemotherapy locally. No history of any chronic lung disease or disorder. The patient arrived to [place] approximately 5 weeks ago. This is his summer vacation. During the study was having increased cough and congestion and some increased shortness of breath. The patient came into the hospital. He was found to be in acute kidney injury with a creatinine of 1.6. His troponins were minimally elevated and there was evidence of troponin leak consistent with an acute non- STEMI. The patient is a chest x-ray that showed some limited right middle lobe pulmonary infiltrates. 09/28/2018 Patient is seen and evaluated in room at bedside; remains somewhat lethargic but does report respond to verbal stimulation vital signs show temperature of 97.6, pulse 114, respiration 20 and blood pressure of 84/64; SpO2 of 96% on room air Lab review shows a normal white blood count; troponin I was 0.136 Patient is started on IV ceftriaxone and azithromycin; pulmonary service agrees with above Cardiology is following and recommending to continue with. IV antibiotics since pneumonia seems to be etiology of shortness of breath; IV Lasix has been discontinued; echocardiogram is ordered and cardiology will make further recommendations after echo is reported Objective - Vital Signs Vital signs: Vital Signs Temp 97.3 F L 09/28/18 08:00 Pulse 111 H 09/28/18 10:34 Resp 16 09/28/18 08:00 BP 107/62 09/28/18 10:34 Pulse Ox 94 L 09/28/18 08:00 Intake & Output 09/27/18 09/28/18 09/28/18 18:59 06:59 18:59 Intake Total 120 126.445 420 Output Total 275 Balance 120 -148.555 420 Weight 109.9 kg 109 kg Intake: Intake, IV Titration 126.445 Amount Heparin Sod,Pork in 0.45% 126.445 NaCl 25,000 unit In 0.45 % NaCl 1 250ml.bag @ 18 UNITS/KG/HR 18.779 mls/hr IV .[id number] [facility] Rx#: [id number] Oral 120 420 Output: Urine 275 Other: Voiding Method Toilet Urinal Urinal # Voids 1 # Bowel Movements 1 - Exam - Constitutional General appearance: Present: average body habitus, cooperative, no acute distress - EENT Eyes: Present: anicteric sclerae, EOMI, PERRLA, normal appearance ENT: Present: hearing grossly normal, normal oropharynx Ears: bilateral: normal - Neck Neck: Present: normal ROM. Absent: lymphadenopathy, rigidity, thyromegaly Carotids: negative: bruit present Thyroid: bilateral: normal size, negative: enlarged, nodule - Respiratory Respiratory: bilateral: CTA, negative: rales, rhonchi, wheezing - Cardiovascular Rhythm: regular Heart sounds: normal: S1, S2 Abnormal Heart Sounds: Absent: systolic murmur, diastolic murmur - Gastrointestinal General gastrointestinal: Present: normal bowel sounds, soft. Absent: distended, organomegaly, tenderness - Genitourinary Genitourinary Comment(s): deferred - Integumentary Integumentary: Present: normal turgor. Absent: jaundiced, rash, ulcer - Neurologic Neurologic: Present: CNII-XII intact. Absent: focal deficits - Musculoskeletal Musculoskeletal: Present: gait normal, strength equal bilaterally - Psychiatric Psychiatric: Present: A&O x's 3, appropriate affect, intact judgment & insight - Labs CBC & Chem 7: 09/28/18 06:21 09/27/18 12:18 Labs: Abnormal Lab Results - Last 24 Hours (Table) 09/27/18 09/27/18 09/27/18 Range/Units 12:18 12:18 12:18 RBC (4.30-5.90) m/uL MCV 104.5 H (80.0-100.0) fL RDW 18.0 H (11.5-15.5) % Plt Count 112 L (150-450) k/uL Lymphocytes # 0.9 L (1.0-4.8) k/uL PT 16.6 H (9.0-12.0) sec INR 1.7 H (<1.2) APTT (22.0-30.0) sec D-Dimer 4.84 H (<0.60) mg/L FEU BUN 40 H (9-20) mg/dL Creatinine 1.63 H (0.66-1.25) mg/dL Total Bilirubin 3.8 H (0.2-1.3) mg/dL AST 60 H (17-59) U/L Alkaline Phosphatase 140 H (38-126) U/L Troponin I (0.000-0.034) ng/mL 09/27/18 09/27/18 09/27/18 Range/Units 12:18 19:52 19:52 RBC (4.30-5.90) m/uL MCV (80.0-100.0) fL RDW (11.5-15.5) % Plt Count (150-450) k/uL Lymphocytes # (1.0-4.8) k/uL PT (9.0-12.0) sec INR (<1.2) APTT >200.0 H* (22.0-30.0) sec D-Dimer (<0.60) mg/L FEU BUN (9-20) mg/dL Creatinine (0.66-1.25) mg/dL Total Bilirubin (0.2-1.3) mg/dL AST (17-59) U/L Alkaline Phosphatase (38-126) U/L Troponin I 0.163 H* 0.136 H* (0.000-0.034) ng/mL 09/27/18 09/28/18 09/28/18 Range/Units 22:13 02:24 02:24 RBC (4.30-5.90) m/uL MCV (80.0-100.0) fL RDW (11.5-15.5) % Plt Count (150-450) k/uL Lymphocytes # (1.0-4.8) k/uL PT (9.0-12.0) sec INR (<1.2) APTT >200.0 H* 57.3 H (22.0-30.0) sec D-Dimer (<0.60) mg/L FEU BUN (9-20) mg/dL Creatinine (0.66-1.25) mg/dL Total Bilirubin (0.2-1.3) mg/dL AST (17-59) U/L Alkaline Phosphatase (38-126) U/L Troponin I 0.136 H* (0.000-0.034) ng/mL 09/28/18 09/28/18 Range/Units 06:21 06:21 RBC 4.28 L (4.30-5.90) m/uL MCV 104.4 H (80.0-100.0) fL RDW 17.8 H (11.5-15.5) % Plt Count 122 L (150-450) k/uL Lymphocytes # (1.0-4.8) k/uL PT (9.0-12.0) sec INR (<1.2) APTT 67.5 H (22.0-30.0) sec D-Dimer (<0.60) mg/L FEU BUN (9-20) mg/dL Creatinine (0.66-1.25) mg/dL Total Bilirubin (0.2-1.3) mg/dL AST (17-59) U/L Alkaline Phosphatase (38-126) U/L Troponin I (0.000-0.034) ng/mL Assessment and Plan Assessment: 1. Acute onset dyspnea; right middle lobe pneumonia - We will start patient on IV ceftriaxone along with oral azithromycin - Bronchodilator nebulizer treatments with Proventil/Atrovent - Sputum and blood cultures - Consult pulmonary for further recommendations 2. Elevated d-dimer; rule out PE - CT chest PE protocol could not be done due to elevated creatinine; patient had VQ scan done which was low probability for PE - Pulmonary service consulted for further recommendations 3. Non-ST elevation AL - Patient started on aspirin, beta blockers and IV heparin per protocol - Consult cardiology for further recommendations; 2-D echo 4. Acute exacerbation CHF - Patient takes Bumex 1 mg by mouth daily at home; we will hold latent start patient on IV Lasix 40 mg every 12 hours - We will monitor strict FRANK's, daily weights, renal function and electrolytes; restricted fluid and sodium diet - Echocardiogram ordered; cardiology is to see for further recommendations 5. Hypertension; patient takes Coreg and lisinopril at home; we will hold off on lisinopril secondary to acute renal injury 6. Hyperlipidemia; atorvastatin 40 mg by mouth daily at bedtime 7. Coronary artery disease/CHF; continue with aspirin, Coreg and Plavix; we'll hold off on Bumex while patient on IV Lasix 8. Acute renal injury; we will hold off on lisinopril; avoid hypotension and nephrotoxins - Monitor strict FRANK's and daily weights along with renal function and electrolyte monitoring - No IV fluids secondary to exacerbation of CHF - We will consult nephrology if renal function continues to deteriorate 9. DVT prophylaxis; systemic anticoagulation with heparin CODE STATUS; DO NOT RESUSCITATE Time with Patient: Greater than 30
[2018-09-28] MEDS: BUMETANIDE 1 MG TAB PO SCH ×2 (16:53→18:41)
[2018-09-29] MEDS: CARVEDILOL 3.125 MG TAB PO SCH ×2 (06:23→17:10)
[2018-09-29 07:05] LABS: Basophils % (A) 1 %; Eosinophils # (A) 0.2 k/uL (0-0.7); Eosinophils % (A) 4 %; HCT 45.3 % (39.0-53.0); HGB 14.1 gm/dL (13.0-17.5); Hypochromasia Slight; Lymphocytes % (A) 19 %; MCH 32.7 pg (25.0-35.0); MCHC 31.2 g/dL (31.0-37.0); MCV 104.9 fL (80.0-100.0); Macrocytosis Moderate; Mean Platelet Volume 8.3; Monocytes # (A) 0.5 k/uL (0-1.0); Monocytes % (A) 8 %; Neutrophils # (A) 3.6 k/uL (1.3-7.7); Neutrophils % (A) 65 %; Platelet Count 107 k/uL (150-450); RBC 4.32 m/uL (4.30-5.90); WBC 5.6 k/uL (3.8-10.6)
[2018-09-29] MEDS: ALLOPURINOL 300 MG TAB PO SCH (09:00)
[2018-09-29] MEDS: CLOPIDOGREL 75 MG TAB PO SCH (09:00)
[2018-09-29] MEDS: ASPIRIN 81 MG PO SCH (09:00)
[2018-09-29] MEDS: BUMETANIDE 1 MG TAB PO SCH ×2 (09:00→15:55)
[2018-09-29] MEDS: AZITHROMYCIN 250 MG TAB PO SCH (09:02)
--- NOTE | 2018-09-29 10:43 | P.PN ---
Subjective Progress Note Date: 09/29/18 This is a 70-year-old gentleman with history of coronary artery disease with previous bypass surgery, possible cardiomyopathy and congestive heart failure, status post ICD placement with biventricular pacemaker. Apparently the pacemaker was upgraded to by IV. In March 2018. Patient usually comes to [place] on in summer months and spends several weeks. He has been in [place] area for about 5 weeks. Was last 5 weeks. Patient has been coughing and bringing up clear phlegm and has been having shortness of breath. Denied any chest pain. Doesn't appear patient has any proximal nocturnal dyspnea. Denies any pedal swelling. On admission his d-dimer was elevated and patient had a VQ scan which was low probability for pulmonary emboli. She is being treated with IV Lasix. A chest x-ray shows cardiomegaly but no overt congestive heart failure, but there is suspicion for possible pneumonia in the right middle lobe. Patient is seen by ticket speculator and is planning to continue treated with antibiotics. His creatinine is up to 1.6. His troponins are elevated but the pattern is not consistent with acute myocardial infarction. I'm going to discontinue IV Lasix and start him on by mouth Bumex. I'm going to get an echocardiogram done. Further recommendation depending upon the clinical course 09/29: Patient states he has had some improvement of his shortness of breath. Today is his first time getting out of bed to a chair. Echocardiogram is pending. Patient has been seen by Dr. Manley for pneumonia and continued on antibiotics. Patient is off heparin drip. Continue Bumex oral for now. He has been afebrile, heart rate 110, blood pressure 105/68, pulse ox 96% on room air. Objective - Vital Signs Vital signs: Vital Signs Temp 97.5 F L 09/29/18 08:00 Pulse 110 H 09/29/18 08:00 Resp 24 09/29/18 08:00 BP 105/68 09/29/18 08:00 Pulse Ox 96 09/29/18 08:00 Intake & Output 09/28/18 09/29/18 09/29/18 18:59 06:59 18:59 Intake Total 700 150 400 Output Total 1250 700 150 Balance -550 -550 250 Weight 109 kg 109.8 kg Intake: IV 50 cefTRIAXone 1 gm In 50 Sodium Chloride 0.9% 50 ml @ 100 mls/hr IVPB Q24H [facility] Rx#:[id number] Intake, IV Titration 160 Amount Sodium Chloride 0.9% 1, 160 000 ml @ 20 mls/hr IV . Q24H [facility] Rx#:[id number] Oral 650 150 240 Output: Urine 1250 700 150 Other: Voiding Method Urinal Urinal Urinal # Voids 1 1 # Bowel Movements 1 - Exam GENERAL EXAM: Patient is alert and oriented and doesn't appear to be in any acute distress, seemed to chronically ill HEENT: Normocephalic. Normal reaction of pupils, equal size, normal range of extraocular motion. No erythema or exudates in the throat. NECK: No masses, no nuchal rigidity. CHEST: No chest wall deformity. LUNGS: Equal air entry with no crackles or wheeze. HEART: S1 and S2 normal with no audible mumurs or gallops. Regular rhythm, femorals equal on both sides.. ABDOMEN: No hepatosplenomegaly, normal bowel sounds, no guarding or rigidity. SKIN: No rashes CENTRAL NERVOUS SYSTEM: No focal deficits. EXTREMITIES: No cyanosis, clubbing or edema. - Labs CBC & Chem 7: 09/29/18 05:57 09/27/18 12:18 Labs: Abnormal Lab Results - Last 24 Hours (Table) 09/28/18 09/29/18 Range/Units 12:58 05:57 MCV 104.9 H (80.0-100.0) fL RDW 16.0 H (11.5-15.5) % Plt Count 107 L (150-450) k/uL APTT 99.7 H (22.0-30.0) sec Assessment and Plan Plan: (1) Chronic systolic heart failure Current Visit: Yes Status: Acute Code(s): I50.22 - CHRONIC SYSTOLIC (CONGESTIVE) HEART FAILURE SNOMED Code(s): 171866435 (2) Elevated troponin acute coronary syndrome ruled out Current Visit: Yes Status: Acute Code(s): R74.8 - ABNORMAL LEVELS OF OTHER SERUM ENZYMES SNOMED Code(s): 679161585 (3) Pneumonia Current Visit: Yes Status: Acute Code(s): J18.9 - PNEUMONIA, UNSPECIFIED ORGANISM SNOMED Code(s): 268127376 (4) History of coronary artery bypass graft Current Visit: Yes Status: Acute Code(s): Z95.1 - PRESENCE OF AORTOCORONARY BYPASS GRAFT SNOMED Code(s): 289338344 (5) Ischemic cardiomyopathy Current Visit: Yes Status: Acute Code(s): I25.5 - ISCHEMIC CARDIOMYOPATHY SNOMED Code(s): 756945865 (6) Cardiac defibrillator in place Current Visit: Yes Status: Acute Code(s): Z95.810 - PRESENCE OF AUTOMATIC (IMPLANTABLE) CARDIAC DEFIBRILLATOR SNOMED Code(s): 701368494 Plan: We will continue current management with antibiotics. Continue Bumex 1 mg twice daily but patient does not seem to be in significant fluid overload. Monitor renal functions. Obtain 2-D echocardiogram and Doppler study to assess cardiac structure and function. Further recommendations depend upon the clinical course. Nurse practitioner note has been reviewed, I agree with document findings and plan of care. Vision was seen and examined.
--- NOTE | 2018-09-29 11:15 | P.PN ---
Subjective Progress Note Date: 09/29/18 Principal diagnosis: Dyspnea, suspecting a right middle lobe pneumonia. 70-year-old male patient with known history of coronary artery disease, previous bypass surgery, possible cardiomyopathy as the patient has a AICD with biventricular pacer and all of this work has been done in [place]. The patient also has history of bladder cancer receiving intravesicular chemotherapy lo joe. No history of any chronic lung disease or disorder. The patient arrived to [place] approximately 5 weeks ago. This is his summer vacation. During the study was having increased cough and congestion and some increased shortness of breath. The patient came into the hospital. He was found to be in acute kidney injury with a creatinine of 1.6. His troponins were minimally elevated and t here was evidence of troponin leak consistent with an acute non-STEMI. The patient is a chest x-ray that showed some limited right middle lobe pulmonary infiltrates. The pulmonary consultation was requested. The patient is also is being seen by cardiology. He is on room air for now. No nausea. No vomiting. No aspiration. He does not utilize any form of oxygen or pulmonary medication on outpatient basis. Baseline creatinine is not known. Otherwise no other records available. He is known to have peripheral vascular disease with previous intervention to his lower extremities. He is also has undergone coronary stenting and previous bypass surgery. The patient is seen today 09/29/2018 in follow-up on the selective care unit. He is currently resting comfortably in bed. Awake and alert in no acute distress. Breathing easier today as compared to yesterday. Loose nonproductive cough. Maintaining good O2 saturations in the 90s on room air. She's afebrile. Slightly tachycardic. White count 5.6. Hemoglobin 14.1. Continued on ceftriaxone and azithromycin. Objective - Vital Signs Vital signs: Vital Signs Temp 97.5 F L 09/29/18 08:00 Pulse 110 H 09/29/18 08:00 Resp 24 09/29/18 08:00 BP 105/68 09/29/18 08:00 Pulse Ox 96 09/29/18 08:00 Intake & Output 09/28/18 09/29/18 09/29/18 18:59 06:59 18:59 Intake Total 700 150 400 Output Total 1250 700 150 Balance -550 -550 250 Weight 109 kg 109.8 kg Intake: IV 50 cefTRIAXone 1 gm In 50 Sodium Chloride 0.9% 50 ml @ 100 mls/hr IVPB Q24H [facility] Rx#:[id number] Intake, IV Titration 160 Amount Sodium Chloride 0.9% 1, 160 000 ml @ 20 mls/hr IV . Q24H [facility] Rx#:[id number] Oral 650 150 240 Output: Urine 1250 700 150 Other: Voiding Method Urinal Urinal Urinal # Voids 1 1 # Bowel Movements 1 1 - Exam Gen. appearance, resting comfortably in bed, on room air, no acute distress Head exam was generally normal. There was no scleral icterus or corneal arcus. Mucous membranes were moist. Neck was supple and without jugular venous distension, thyromegaly, or carotid bruits. Carotids were easily palpable bilaterally. There was no adenopathy. Lungs sounds are clear diminished in lung bases, few scattered rhonchi Cardiac exam revealed the PMI to be normally situated and sized. The rhythm was regular and no extrasystoles were noted during several minutes of auscultation. The first and second heart sounds were normal and physiologic splitting of the second heart sound was noted. There were no murmurs, rubs, clicks, or gallops. The patient is a pacemaker pocket in the left anterior chest area in addition to sternotomy scar which is dry clean and intact. Abdominal exam revealed normal bowel sounds. The abdomen was soft, non-tender, and without masses, organomegaly, or appreciable enlargement of the abdominal aorta. Examination of the extremities revealed easily palpable yet diminished radial, femoral and pedal pulses. There was no cyanosis, clubbing or edema. Examination of the skin revealed no evidence of significant rashes, suspicious appearing nevi or other concerning lesions. - Labs CBC & Chem 7: 09/29/18 05:57 09/27/18 12:18 Labs: Abnormal Lab Results - Last 24 Hours (Table) 09/28/18 09/29/18 Range/Units 12:58 05:57 MCV 104.9 H (80.0-100.0) fL RDW 16.0 H (11.5-15.5) % Plt Count 107 L (150-450) k/uL APTT 99.7 H (22.0-30.0) sec Assessment and Plan Assessment: Impression: 1 shortness of breath, subacute, suspecting a right middle lobe pneumonia 2 coronary artery disease with a previous coronary artery bypass surgery. Suspect a possible STEMI as the patient had elevation in troponins 3 CHF, suspected 4 kidney injury, likely acute 5 elevated d-dimer with a low probability VQ scan, unlikely to be related to pulmonary embolism 6 hypertension 7 hyperlipidemia 8 peripheral vascular disease 9 history of AICD/pacer insertion Plan: The patient was seen and evaluated by Dr. Manley. He is improved today as c ompared to yesterday. Continue current treatment plan. Follow-up chest x-ray in the a.m. Probable discharge in the a.m. We'll continue to follow. I, the cosigning physician, performed a history & physical examination of the patient. Lungs sounds with few scattered rhonchi. Maintaining good O2 saturations in the 90s on room air. I discussed the assessment and plan of care with my nurse practitioner, Jami Sagastume. I attest to the above note as dictated by her.
[2018-09-29] MEDS: oxyCODONE-APAP 5-325MG 1 EACH TAB PO PRN (13:10)
--- NOTE | 2018-09-29 14:42 | P.PN ---
Subjective Progress Note Date: 09/29/18 Principal diagnosis: right middle lobe pneumonia Non-ST elevation ND Acute exacerbation CHF 70-year-old male patient with known history of coronary artery disease, previous bypass surgery, possible cardiomyopathy as the patient has a AICD with biventricular pacer and all of this work has been done in [place]. The patient also has history of bladder cancer receiving intravesicular chemotherapy locally. No history of any chronic lung disease or disorder. The patient arrived to [place] approximately 5 weeks ago. This is his summer vacation. During the study was having increased cough and congestion and some increased shortness of breath. The patient came into the hospital. He was found to be in acute kidney injury with a creatinine of 1.6. His troponins were minimally elevated and there was evidence of troponin leak consistent with an acute non- STEMI. The patient is a chest x-ray that showed some limited right middle lobe pulmonary infiltrates. 09/28/2018 Patient is seen and evaluated in room at bedside; remains somewhat lethargic but does report respond to verbal stimulation vital signs show temperature of 97.6, pulse 114, respiration 20 and blood pressure of 84/64; SpO2 of 96% on room air Lab review shows a normal white blood count; troponin I was 0.136 Patient is started on IV ceftriaxone and azithromycin; pulmonary service agrees with above Cardiology is following and recommending to continue with. IV antibiotics since pneumonia seems to be etiology of shortness of breath; IV Lasix has been discontinued; echocardiogram is ordered and cardiology will make further recommendations after echo is reported 09/29/2018 Patient is seen and evaluated in room in follow-up on the selective care unit. He is currently resting comfortably in bed. Awake and alert in no acute distress. Breathing easier today as compared to yesterday. Loose nonproductive cough. Maintaining good O2 saturations in the 90s on room air. She's afebrile. Slightly tachycardic. White count 5.6. Hemoglobin 14.1. Continued on ceftriaxone and azithromycin. Objective - Vital Signs Vital signs: Vital Signs Temp 96.1 F L 09/29/18 11:30 Pulse 113 H 09/29/18 11:30 Resp 24 09/29/18 11:30 BP 103/78 09/29/18 11:30 Pulse Ox 97 09/29/18 11:30 Intake & Output 09/28/18 09/29/18 09/29/18 18:59 06:59 18:59 Intake Total 700 150 400 Output Total 1250 700 150 Balance -550 -550 250 Weight 109 kg 109.8 kg Intake: IV 50 cefTRIAXone 1 gm In 50 Sodium Chloride 0.9% 50 ml @ 100 mls/hr IVPB Q24H [facility] Rx#:[id number] Intake, IV Titration 160 Amount Sodium Chloride 0.9% 1, 160 000 ml @ 20 mls/hr IV . Q24H [facility] Rx#:[id number] Oral 650 150 240 Output: Urine 1250 700 150 Other: Voiding Method Urinal Urinal Urinal # Voids 1 1 # Bowel Movements 1 1 - Exam - Constitutional General appearance: Present: average body habitus, cooperative, no acute distress - EENT Eyes: Present: anicteric sclerae, EOMI, PERRLA, normal appearance ENT: Present: hearing grossly normal, normal oropharynx Ears: bilateral: normal - Neck Neck: Present: normal ROM. Absent: lymphadenopathy, rigidity, thyromegaly Carotids: negative: bruit present Thyroid: bilateral: normal size, negative: enlarged, nodule - Respiratory Respiratory: bilateral: CTA, negative: rales, rhonchi, wheezing - Cardiovascular Rhythm: regular Heart sounds: normal: S1, S2 Abnormal Heart Sounds: Absent: systolic murmur, diastolic murmur - Gastrointestinal General gastrointestinal: Present: normal bowel sounds, soft. Absent: distende d, organomegaly, tenderness - Genitourinary Genitourinary Comment(s): deferred - Integumentary Integumentary: Present: normal turgor. Absent: jaundiced, rash, ulcer - Neurologic Neurologic: Present: CNII-XII intact. Absent: focal deficits - Musculoskeletal Musculoskeletal: Present: gait normal, strength equal bilaterally - Psychiatric Psychiatric: Present: A&O x's 3, appropriate affect, intact judgment & insight - Labs CBC & Chem 7: 09/29/18 05:57 09/27/18 12:18 Labs: Abnormal Lab Results - Last 24 Hours (Table) 09/28/18 09/29/18 Range/Units 12:58 05:57 MCV 104.9 H (80.0-100.0) fL RDW 16.0 H (11.5-15.5) % Plt Count 107 L (150-450) k/uL APTT 99.7 H (22.0-30.0) sec Assessment and Plan Assessment: 1. Acute onset dyspnea; right middle lobe pneumonia - We will start patient on IV ceftriaxone along with oral azithromycin - Bronchodilator nebulizer treatments with Proventil/Atrovent - Sputum and blood cultures - Consult pulmonary for further recommendations 2. Elevated d-dimer; rule out PE - CT chest PE protocol could not be done due to elevated creatinine; patient had VQ scan done which was low probability for PE - Pulmonary service consulted for further recommendations 3. Non-ST elevation ND - Patient started on aspirin, beta blockers and IV heparin per protocol - Consult cardiology for further recommendations; 2-D echo 4. Acute exacerbation CHF - Patient takes Bumex 1 mg by mouth daily at home; we will hold latent start pa tient on IV Lasix 40 mg every 12 hours - We will monitor strict FRANK's, daily weights, renal function and electrolytes; restricted fluid and sodium diet - Echocardiogram ordered; cardiology is to see for further recommendations 5. Hypertension; patient takes Coreg and lisinopril at home; we will hold off on lisinopril secondary to acute renal injury 6. Hyperlipidemia; atorvastatin 40 mg by mouth daily at bedtime 7. Coronary artery disease/CHF; continue with aspirin, Coreg and Plavix; we'll hold off on Bumex while patient on IV Lasix 8. Acute renal injury; we will hold off on lisinopril; avoid hypotension and nephrotoxins - Monitor strict FRANK's and daily weights along with renal function and electrolyte monitoring - No IV fluids secondary to exacerbation of CHF - We will consult nephrology if renal function continues to deteriorate 9. DVT prophylaxis; systemic anticoagulation with heparin CODE STATUS; DO NOT RESUSCITATE Time with Patient: Greater than 30
[2018-09-29] MEDS: SODIUM CHLORIDE 0.9% 1,000 ML IV SCH (15:48)
[2018-09-29] MEDS ORDERED: SENNOSIDES-DOCUSATE SODIUM 1 EACH TAB PO STA (15:50)
[2018-09-29] MEDS: ATORVASTATIN 40 MG TAB PO SCH (20:45)
[2018-09-30] MEDS: CARVEDILOL 3.125 MG TAB PO SCH ×2 (06:30→18:17)
[2018-09-30 06:55] LABS: Anisocytosis Slight; Basophils % (A) 1 %; Eosinophils # (A) 0.1 k/uL (0-0.7); Eosinophils % (A) 2 %; HCT 48.4 % (39.0-53.0); HGB 14.9 gm/dL (13.0-17.5); Hypochromasia Moderate; Lymphocytes % (A) 19 %; MCHC 30.7 g/dL (31.0-37.0); MCV 104.1 fL (80.0-100.0); Macrocytosis Moderate; Monocytes # (A) 0.4 k/uL (0-1.0); Monocytes % (A) 8 %; Neutrophils # (A) 3.6 k/uL (1.3-7.7); Neutrophils % (A) 67 %; RBC 4.65 m/uL (4.30-5.90); RDW 17.3 % (11.5-15.5); WBC 5.3 k/uL (3.8-10.6)
[2018-09-30 07:36] LABS: Platelet Count 102 k/uL (150-450)
[2018-09-30 07:37] LABS: Mean Platelet Volume 8.5
--- NOTE | 2018-09-30 08:16 | XR ---
EXAMINATION TYPE: XR chest 2V DATE OF EXAM: 09/30/2018 COMPARISON: Prior chest x-ray dated 09/27/2018 HISTORY: Pneumonia TECHNIQUE: Frontal and lateral views of the chest are obtained. FINDINGS: Patient is post median sternotomy and the heart remains enlarged. Intracardiac defibrillat or leads are stable. Postop changes are noted to the spine. No evident pneumothorax or pleural effusi on. Subsegmental basilar atelectatic changes are suspected. Prominent lung lines are compatible with underlying COPD. IMPRESSION: Suspect some subluxation at all basilar atelectatic changes. Essentially stable exam. Ca rdiomegaly. Additional findings above.
[2018-09-30] MEDS: ALLOPURINOL 300 MG TAB PO SCH (09:22)
[2018-09-30] MEDS: CLOPIDOGREL 75 MG TAB PO SCH (09:22)
[2018-09-30] MEDS: AZITHROMYCIN 250 MG TAB PO SCH (09:22)
[2018-09-30] MEDS: BUMETANIDE 1 MG TAB PO SCH ×2 (09:22→15:29)
[2018-09-30] MEDS: SENNOSIDES-DOCUSATE SODIUM 1 EACH TAB PO SCH (09:22)
[2018-09-30] MEDS: ASPIRIN 81 MG PO SCH (09:22)
[2018-09-30] MEDS: SODIUM CHLORIDE 0.9% 1,000 ML IV SCH (13:44)
--- NOTE | 2018-09-30 14:27 | P.PN ---
Subjective Progress Note Date: 09/30/18 Principal diagnosis: Dyspnea, suspecting a right middle lobe pneumonia. 70-year-old male patient with known history of coronary artery disease, previous bypass surgery, possible cardiomyopathy as the patient has a AICD with biventricular pacer and all of this work has been done in [place]. The patient also has history of bladder cancer receiving intravesicular chemotherapy lo jeo. No history of any chronic lung disease or disorder. The patient arrived to [place] approximately 5 weeks ago. This is his summer vacation. During the study was having increased cough and congestion and some increased shortness of breath. The patient came into the hospital. He was found to be in acute kidney injury with a creatinine of 1.6. His troponins were minimally elevated and t here was evidence of troponin leak consistent with an acute non-STEMI. The patient is a chest x-ray that showed some limited right middle lobe pulmonary infiltrates. The pulmonary consultation was requested. The patient is also is being seen by cardiology. He is on room air for now. No nausea. No vomiting. No aspiration. He does not utilize any form of oxygen or pulmonary medication on outpatient basis. Baseline creatinine is not known. Otherwise no other records available. He is known to have peripheral vascular disease with previous intervention to his lower extremities. He is also has undergone coronary stenting and previous bypass surgery. The patient is seen today 09/29/2018 in follow-up on the selective care unit. He is currently resting comfortably in bed. Awake and alert in no acute distress. Breathing easier today as compared to yesterday. Loose nonproductive cough. Maintaining good O2 saturations in the 90s on room air. She's afebrile. Slightly tachycardic. White count 5.6. Hemoglobin 14.1. Continued on ceftriaxone and azithromycin. The patient is seen today 09/30/2018 in follow-up on the selective care unit. He denies any worsening shortness of breath cough or congestion. Some dyspnea on exertion. Maintaining O2 saturations in the 90s on room air. He's been afebrile. Hemodynamically stable. Chest x-ray reveals some subtle segmental atelectatic changes at the bases. COPD. White count 5.3. Hemoglobin 14.9. He remains on azithromycin. Objective - Vital Signs Vital signs: Vital Signs Temp 97 F L 09/30/18 12:05 Pulse 106 H 09/30/18 12:05 Resp 16 09/30/18 12:05 BP 109/85 09/30/18 12:05 Pulse Ox 96 09/30/18 12:05 Intake & Output 09/29/18 09/30/18 09/30/18 18:59 06:59 18:59 Intake Total 690 150 600 Output Total 300 375 250 Balance 390 -225 350 Weight 109.6 kg Intake: IV 50 cefTRIAXone 1 gm In 50 Sodium Chloride 0.9% 50 ml @ 100 mls/hr IVPB Q24H [facility] Rx#:[id number] Intake, IV Titration 160 Amount Sodium Chloride 0.9% 1, 160 000 ml @ 20 mls/hr IV . Q24H [facility] Rx#:[id number] Oral 480 150 600 Output: Urine 300 375 250 Other: Voiding Method Urinal Urinal # Voids 1 # Bowel Movements 1 - Exam Gen. appearance, resting comfortably in bed, on room air, no acute distress Head exam was generally normal. There was no scleral icterus or corneal arcus. Mucous membranes were moist. Neck was supple and without jugular venous distension, thyromegaly, or carotid bruits. Carotids were easily palpable bilaterally. There was no adenopathy. Lungs sounds are clear diminished in lung bases, few scattered rhonchi Cardiac exam revealed the PMI to be normally situated and sized. The rhythm was regular and no extrasystoles were noted during several minutes of auscultation. The first and second heart sounds were normal and physiologic splitting of the second heart sound was noted. There were no murmurs, rubs, clicks, or gallops. The patient is a pacemaker pocket in the left anterior chest area in addition to sternotomy scar which is dry clean and intact. Abdominal exam revealed normal bowel sounds. The abdomen was soft, non-tender, and without masses, organomegaly, or appreciable enlargement of the abdominal aorta. Examination of the extremities revealed easily palpable yet diminished radial, femoral and pedal pulses. There was no cyanosis, clubbing or edema. Examination of the skin revealed no evidence of significant rashes, suspicious appearing nevi or other concerning lesions. - Labs CBC & Chem 7: 09/30/18 05:59 09/27/18 12:18 Labs: Abnormal Lab Results - Last 24 Hours (Table) 09/30/18 Range/Units 05:59 MCV 104.1 H (80.0-100.0) fL MCHC 30.7 L (31.0-37.0) g/dL RDW 17.3 H (11.5-15.5) % Plt Count 102 L (150-450) k/uL Assessment and Plan Assessment: Impression: 1 shortness of breath, subacute, suspecting a right middle lobe pneumonia improved 2 coronary artery disease with a previous coronary artery bypass surgery. Suspect a possible STEMI as the patient had elevation in troponins 3 CHF, suspected 4 kidney injury, likely acute 5 elevated d-dimer with a low probability VQ scan, unlikely to be related to pulmonary embolism 6 hypertension 7 hyperlipidemia 8 peripheral vascular disease 9 history of AICD/pacer insertion Plan: The patient was seen and evaluated by Dr. Elam. He is cleared for discharge from the pulmonary standpoint. Complete a course of antibiotics. We'll see as needed. I, the cosigning physician, performed a history & physical examination of the patient. Lungs sounds with few scattered rhonchi. Maintaining good O2 saturations in the 90s on room air. I discussed the assessment and plan of care with my nurse practitioner, Jami Sagastume. I attest to the above note as dictated by her.
--- NOTE | 2018-09-30 15:07 | P.PN ---
Subjective Progress Note Date: 09/30/18 This is a 70-year-old gentleman with history of coronary artery disease with previous bypass surgery, possible cardiomyopathy and congestive heart failure, status post ICD placement with biventricular pacemaker. Apparently the pacemaker was upgraded to by IV. In March 2018. Patient usually comes to [place] on in summer months and spends several weeks. He has been in [place] area for about 5 weeks. Was last 5 weeks. Patient has been coughing and bringing up clear phlegm and has been having shortness of breath. Denied any chest pain. Doesn't appear patient has any proximal nocturnal dyspnea. Denies any pedal swelling. On admission his d-dimer was elevated and patient had a VQ scan which was low probability for pulmonary emboli. She is being treated with IV Lasix. A chest x-ray shows cardiomegaly but no overt congestive heart failure, but there is suspicion for possible pneumonia in the right middle lobe. Patient is seen by foreign food specialty cook and is planning to continue treated with antibiotics. His creatinine is up to 1.6. His troponins are elevated but the pattern is not consistent with acute myocardial infarction. I'm going to discontinue IV Lasix and start him on by mouth Bumex. I'm going to get an echocardiogram done. Further recommendation depending upon the clinical course. 09/30/2018 Patient was seen and examined this morning, states that his breathing is overall stable. Mild dyspnea on exertion. Afebrile and hemodynamically stable. Chest x-ray shows some subtle subsegmental atelectatic changes to the bases with COPD. No evidence of congestive cardiac failure. Objective - Vital Signs Vital signs: Vital Signs Temp 97 F L 09/30/18 12:05 Pulse 106 H 09/30/18 12:05 Resp 16 09/30/18 12:05 BP 109/85 09/30/18 12:05 Pulse Ox 96 09/30/18 12:05 Intake & Output 09/29/18 09/30/18 09/30/18 18:59 06:59 18:59 Intake Total 690 150 600 Output Total 300 375 250 Balance 390 -225 350 Weight 109.6 kg Intake: IV 50 cefTRIAXone 1 gm In 50 Sodium Chloride 0.9% 50 ml @ 100 mls/hr IVPB Q24H [facility] Rx#:[id number] Intake, IV Titration 160 Amount Sodium Chloride 0.9% 1, 160 000 ml @ 20 mls/hr IV . Q24H [facility] Rx#:[id number] Oral 480 150 600 Output: Urine 300 375 250 Other: Voiding Method Urinal Urinal # Voids 1 # Bowel Movements 1 - Exam Gen. appearance, resting comfortably in bed, on room air, no acute distress Head exam was generally normal. There was no scleral icterus or corneal arcus. Mucous membranes were moist. Neck was supple and without jugular venous distension, thyromegaly, or carotid bruits. Carotids were easily palpable bilaterally. There was no adenopathy. Lungs sounds are clear diminished in lung bases, few scattered rhonchi Cardiac exam revealed the PMI to be normally situated and sized. The rhythm was regular and no extrasystoles were noted during several minutes of auscultation. The first and second heart sounds were normal and physiologic splitting of the second heart sound was noted. There were no murmurs, rubs, clicks, or gallops. The patient is a pacemaker pocket in the left anterior chest area in addition to sternotomy scar which is dry clean and intact. Abdominal exam revealed normal bowel sounds. The abdomen was soft, non-tender, and without masses, organomegaly, or appreciable enlargement of the abdominal aorta. Examination of the extremities revealed easily palpable yet diminished radial, femoral and pedal pulses. There was no cyanosis, clubbing or edema. Examination of the skin revealed no evidence of significant rashes, suspicious appearing nevi or other concerning lesions. - Labs CBC & Chem 7: 09/30/18 05:59 09/27/18 12:18 Labs: Abnormal Lab Results - Last 24 Hours (Table) 09/30/18 Range/Units 05:59 MCV 104.1 H (80.0-100.0) fL MCHC 30.7 L (31.0-37.0) g/dL RDW 17.3 H (11.5-15.5) % Plt Count 102 L (150-450) k/uL Assessment and Plan Plan: Impression: 1 shortness of breath, subacute, suspecting a right middle lobe pneumonia improved 2 coronary artery disease with a previous coronary artery bypass surgery. S uspect a possible STEMI as the patient had elevation in troponins 3 CHF, suspected 4 kidney injury, likely acute 5 elevated d-dimer with a low probability VQ scan, unlikely to be related to pulmonary embolism 6 hypertension 7 hyperlipidemia 8 peripheral vascular disease 9 history of AICD/pacer insertion Plan From cardiology's perspective, we'll follow this patient with you now on an as-n eeded basis only, please don't hesitate to call with any questions. DNP note has been reviewed, I agree with a documented findings and plan of care. Patient was seen and examined.
[2018-09-30] MEDS ORDERED: LEVOFLOXACIN 500MG-D5W PMX 500 MG in DEXTROSE/WATER 1 100ML.BAG IVPB SCH (17:00)
[2018-09-30] MEDS: oxyCODONE-APAP 5-325MG 1 EACH TAB PO PRN (18:20)
[2018-09-30] MEDS: HEPARIN SODIUM,PORCINE 5,000 UNIT/ML 1 ML VIAL SQ SCH (19:56)
[2018-09-30] MEDS: ATORVASTATIN 40 MG TAB PO SCH (19:56)
--- NOTE | 2018-09-30 20:42 | PN ---
PROGRESS NOTE DATE OF SERVICE: 09/30/2018 INTERVAL HISTORY: This 78-year-old gentleman who was admitted with shortness of breath possibly had CHF acute exacerbation with possible right middle lobe pneumonia. The patient also had elevated troponin. The most recent chest x-ray reviewed personally by me showed bibasilar atelectatic changes. The patient was seen by multiple consultants at this time, followed by Pulmonary and as well as Cardiology also. The patient also receiving antibiotics for the right middle lobe pneumonia. PAST MEDICAL HISTORY: Review. REVIEW OF SYMPTOMS: Cardiovascular: No angina or palpitations. Respirations: As mentioned earlier. GI: As mentioned earlier. : No dysuria. CENTRAL NERVOUS SYSTEM: No numbness or weakness. CURRENT MEDICATIONS: Reviewed and include: 1. Zyloprim 300 mg daily. 2. Aspirin 81 mg. 3. Lipitor 40 mg. 4. Zithromax 250 mg. 5. Bumex 1 mg b.i.d. 6. Coreg 3.125 mg b.i.d. 7. Omnicef 300 mg p.o. b.i.d. 8. Plavix 75 mg p.o. b.i.d. 9. Percocet 5 mg q.4 p.r.n. 11.P.r.n. medications. PHYSICAL EXAMINATION: The patient is alert, oriented x3, pulse 106. Blood pressure 109/85, respirations 16, temp 97 degrees, pulse ox 98% on room air. HEENT: Conjunctivae normal. Oral mucosa moist. NECK is no jugular venous distention. No carotid bruit. No lymph node enlargement. CARDIOVASCULAR: S1, S2 muffled. RESPIRATORY: Breath sounds diminished in the bases. Scattered rhonchi and crackles. ABDOMEN: Soft, nontender. LEGS: No edema. No swelling. CENTRAL NERVOUS SYSTEM: No focal deficits. LAB STUDIES: WBC 5.4, hemoglobin 14.9, sodium 142, potassium 4, creatinine is 1.63, AST 16, ALT 61. Troponin 0.136. ASSESSMENT: 1. Shortness of breath with possible congestive heart failure acute exacerbation with ejection fraction unknown. 2. Right middle lobe pneumonia. 3. History of coronary artery disease, coronary artery bypass grafting. 4. Elevated D-dimer with ruled out. 5. Acute non ST elevation myocardial infarction. 6. Hypertension. 7. Hyperlipidemia. 8. Acute renal injury. 9. Troponin 0.13. 10.History of coronary artery disease. 11.History of bladder cancer. 12.History of peripheral vascular disease. 13.History of coronary artery disease, coronary artery bypass grafting, stent. 14.History AICD. 15.Remote history of nicotine dependence. 16.Obesity with body mass of 34.7. 17.NO CODE, NO CPR, NO VENT. RECOMMENDATIONS AND DISCUSSION: This 78-year-old gentleman who presented with multiple complex medical issues, we will monitor the patient closely, continue the current medications, management and symptomatic treatment. We will continue the broad-spectrum IV antibiotics. Otherwise, the most recent chest x-ray showed evidence of possible right middle lobe pneumonia. We will continue to monitor. I would also recommend PT/OT evaluation as well. Closely monitor. Follow with Pulmonary and Cardiology. Guarded prognosis. Further recommendations to follow. MAGO / ANDREW: [id number] / MARIBETH
[2018-10-01] MEDS: CARVEDILOL 3.125 MG TAB PO SCH (06:27)
[2018-10-01 07:30] LABS: Calcium 9.5 mg/dL (8.4-10.2); Potassium 4.5 mmol/L (3.5-5.1)
[2018-10-01 07:42] LABS: Anisocytosis Slight; Basophils % (A) 1 %; Eosinophils # (A) 0.1 k/uL (0-0.7); Eosinophils % (A) 1 %; HCT 47.2 % (39.0-53.0); HGB 14.8 gm/dL (13.0-17.5); Hypochromasia Slight; Lymphocytes % (A) 19 %; MCH 32.7 pg (25.0-35.0); MCHC 31.4 g/dL (31.0-37.0); MCV 104.2 fL (80.0-100.0); Macrocytosis Moderate; Monocytes # (A) 0.4 k/uL (0-1.0); Monocytes % (A) 8 %; Neutrophils # (A) 3.6 k/uL (1.3-7.7); Neutrophils % (A) 68 %; Platelet Count 112 k/uL (150-450); RBC 4.52 m/uL (4.30-5.90); RDW 16.3 % (11.5-15.5); WBC 5.2 k/uL (3.8-10.6)
[2018-10-01] MEDS: ALLOPURINOL 300 MG TAB PO SCH (08:57)
[2018-10-01] MEDS: ASPIRIN 81 MG PO SCH (08:57)
[2018-10-01] MEDS: SENNOSIDES-DOCUSATE SODIUM 1 EACH TAB PO SCH (08:57)
[2018-10-01] MEDS: AZITHROMYCIN 250 MG TAB PO SCH (08:57)
[2018-10-01] MEDS: CLOPIDOGREL 75 MG TAB PO SCH (08:57)
[2018-10-01] MEDS: HEPARIN SODIUM,PORCINE 5,000 UNIT/ML 1 ML VIAL SQ SCH (08:58)
[2018-10-01] MEDS: BUMETANIDE 1 MG TAB PO SCH (08:58)
[2018-10-01] MEDS ORDERED: CEFDINIR 300 MG CAP PO SCH (09:00)
[2018-10-01 09:32] VITALS: RESP 18
[2018-10-01 11:51] VITALS: BP 93/67; PULSE 118; TEMP 97.4
[2018-10-01] MEDS ORDERED: MULTIVITAMINS, THERA 1 EACH TAB PO SCH (12:00)
--- NOTE | 2018-10-01 12:53 | ECHOF ---
Referral Reason:Chest pain and cardiomyopathy MEASUREMENTS -------- HEIGHT: 177.8 cm WEIGHT: 109.8 kg BP: 116/78 IVSd: 1.1 cm (0.6 - 1.1) LVIDd: 6.9 cm (3.9 - 5.3) LVPWd: 0.8 cm (0.6 - 1.1) IVSs: 1.0 cm LVIDs: 6.7 cm LVPWs: 0.9 cm LAESV Index (A-L): 1510 ml/m Ao Diam: 3.7 cm (2.0 - 3.7) AV Cusp: 2.3 cm (1.5 - 2.6) RAP: 20.00 mmHg RVSP: 55.98 mmHg FINDINGS -------- Pacerwire seen in RV and RA. This was a technically good study. The left ventricle is severely dilated. Left ventricular wall thickness is normal. There is sever e global hypokinesis of LV . Overall left ventricular systolic function is severely impaired with, an EF < 20%. The right ventricle is normal in size. The left atrium is moderately dilated. The right atrial size is normal. There is mild aortic valve sclerosis. There is mild aortic regurgitation. Moderate mitral annular calcification present. Moderate mitral regurgitation is present. Moderate tricuspid regurgitation present. There is moderate pulmonary hypertension. The right chanel tricular systolic pressure, as measured by Doppler, is 55mmHg. The pulmonic valve was not well visualized. There is no pericardial effusion. CONCLUSIONS -------- 1. Pacerwire seen in RV and RA. 2. This was a technically good study. 3. The left ventricle is severely dilated. 4. Left ventricular wall thickness is normal. 5. There is severe global hypokinesis of LV . 6. Overall left ventricular systolic function is severely impaired with, an EF < 20%. 7. The left atrium is moderately dilated. 8. There is mild aortic valve sclerosis. 9. There is mild aortic regurgitation. 10. Moderate mitral annular calcification present. 11. Moderate mitral regurgitation is present. 12. Moderate tricuspid regurgitation present. 13. There is moderate pulmonary hypertension. 14. The pulmonic valve was not well visualized. 15. There is no pericardial effusion. LABORER [employer]UM[employer]: Robles Dumont RDCS T
[2018-10-01] MEDS ORDERED: LEVOFLOXACIN 250MG-D5W PMX 250 MG in DEXTROSE/WATER 1 50ML.BAG IVPB SCH (18:00)
--- NOTE | 2018-10-02 06:16 | DS ---
DISCHARGE SUMMARY FINAL DIAGNOSES: 1. Shortness of breath, possible congestive heart failure acute exacerbation with acute on chronic systolic dysfunction, ejection fraction less than 20%. 2. Multiple valvular abnormalities including moderate annular calcification as well as mitral regurgitation and tricuspid regurgitation. 3. Right middle lobe pneumonia. 4. History of coronary artery disease, coronary artery bypass grafting. 5. Elevated D-dimer with pulmonary embolism ruled out. 6. Acute non ST elevation myocardial infarction, present on admission. 7. Hypertension. 8. Hyperlipidemia. 9. Acute renal injury. 10.Troponin 0.13. 11.History of coronary artery disease. 12.History of bladder cancer. 13.History of peripheral vascular disease. 14.History of coronary artery disease, coronary artery bypass grafting, stent. 15.History of AICD. 16.History of nicotine dependence. 17.Obesity with body mass index 34.7. 18.NO CODE, NO CPR, NO VENT. DISCHARGE DISPOSITION: The patient will be discharged in stable condition with guarded prognosis. Total time taken 35 minutes. HISTORY OF PRESENT ILLNESS: This 78-year-old gentleman [place] with CHF acute exacerbation. Patient also had right middle lobe pneumonia. Patient treated with IV diuretics and as well as antibiotics. Patient improved significantly. Cardiology and Pulmonology saw the patient. Ejection fraction less than 20%. Medications were adjusted. Patient improved significantly. I recommend follow up with primary physician as well as Cardiology closely in the outpatient setting. On exam, vitals are stable. CARDIOVASCULAR: S1, S2 muffled. RESPIRATORY: A few scattered rhonchi. ABDOMEN: Soft. NERVOUS SYSTEM: No focal deficits. DISCHARGE ADVICE: 1. Diet is cardiac. 2. Activity limited until followup. 3. Follow up with Dr. Massey in 2 to 3 days. 4. Follow up with Dr. Santos in 1 week. 5. Follow up with Dr. Manley in 3 weeks. MEDICATIONS: 1. Coreg 3.125 mg p.o. b.i.d. 2. Lipitor 40 mg p.o. daily. 3. Oxycodone 1 tab q.4 p.r.n. 4. Plavix 75 mg p.o. daily. 5. Aspirin 81 mg p.o. daily. 6. Bumex 1 mg p.o. b.i.d. 7. Levaquin 500 mg p.o. b.i.d. for 5 days. 8. Multivitamins 1 p.o. daily. 9. Zyloprim 100 mg p.o. daily. FOLLOW-UP LABS: CBC, BMP in 2 to 3 days. Continue to follow up. Once again, the patient will be discharged in stable condition with guarded prognosis. Please also note, the total time taken 35 minutes. MAGO / ANDREW: [id number] /
== END 2018-10-01 14:40 | disposition home or self-care (01) | DRG 280 ==
LOC: EC 11:44 → 3SCARD 13:53 → OBSVTOIN 09-28 15:00
PROVIDERS: ADMIT Internal Medicine; ATTEND Internal Medicine
DX: I21.4 Non-ST elevation (NSTEMI) myocardial infarction (principal); J18.9 Pneumonia, unspecified organism; I50.23 Acute on chronic systolic (congestive) heart failure; J44.0 Chronic obstructive pulmonary disease with (acute) lower respiratory infection; N17.9 Acute kidney failure, unspecified; E66.9 Obesity, unspecified; E78.5 Hyperlipidemia, unspecified; E86.0 Dehydration; I08.1 Rheumatic disorders of both mitral and tricuspid valves; I11.0 Hypertensive heart disease with heart failure; I25.10 Atherosclerotic heart disease of native coronary artery without angina pectoris; I25.5 Ischemic cardiomyopathy; I73.9 Peripheral vascular disease, unspecified; Z66 Do not resuscitate; Z68.34 Body mass index [BMI] 34.0-34.9, adult; Z79.02 Long term (current) use of antithrombotics/antiplatelets; Z79.82 Long term (current) use of aspirin; Z79.899 Other long term (current) drug therapy; Z82.49 Family history of ischemic heart disease and other diseases of the circulatory system; Z85.51 Personal history of malignant neoplasm of bladder; Z87.891 Personal history of nicotine dependence; Z95.0 Presence of cardiac pacemaker; Z95.1 Presence of aortocoronary bypass graft; Z95.5 Presence of coronary angioplasty implant and graft; Z95.810 Presence of automatic (implantable) cardiac defibrillator; Z92.21 Personal history of antineoplastic chemotherapy; R79.1 Abnormal coagulation profile; I65.29 Occlusion and stenosis of unspecified carotid artery; Z82.3 Family history of stroke
CPT/HCPCS: 36415; 71046; 78582; 80048; 80053; 82272; 83735; 83880; 84484; 85025; 85379; 85610; 85730; 93005; 93306; 94640; 96365; 96366; 96376; 99291